=== PATIENT | female | born 1985 | race Caucasian/White ===

== ENCOUNTER 2020-10-14 02:01 | Emergency (ER) | payer OTHER ==
[~2020-10-14] VITALS: Ht 162.5 cm; Wt 70.3 kg
[2020-10-15] MEDS ORDERED: AUGMENTIN 875875 MG PO (01:04)
== END 2020-10-14 03:51 | disposition left against medical advice (07) ==
LOC: ED 02:01
DX: J06.9 Acute upper respiratory infection, unspecified (principal); H66.90 Otitis media, unspecified, unspecified ear; R05 Cough; F17.200 Nicotine dependence, unspecified, uncomplicated

== ENCOUNTER 2020-10-14 22:27 | Emergency (ER) | payer OTHER ==
[2020-10-15] MEDS ORDERED: AUGMENTIN 875875 MG PO (01:04)
== END 2020-10-15 01:44 | disposition home or self-care (01) ==
LOC: ED 22:27
DX: H66.90 Otitis media, unspecified, unspecified ear (principal)

== ENCOUNTER 2020-10-15 19:23 | Emergency (ER) | payer OTHER ==
[~2020-10-15 19:23] MED LIST: AUGMENTIN 875875 MG PO
== END 2020-10-15 20:00 | disposition left against medical advice (07) ==
LOC: ED 19:23
DX: F41.9 Anxiety disorder, unspecified (principal); Z53.21 Procedure and treatment not carried out due to patient leaving prior to being seen by health care provider

== ENCOUNTER 2020-10-15 20:52 | Emergency (ER) | payer OTHER | END 2020-10-15 22:22 | disposition left against medical advice (07) | LOC: ED 20:52 | DX: F41.9 Anxiety disorder, unspecified (principal); Z53.21 Procedure and treatment not carried out due to patient leaving prior to being seen by health care provider ==

== ENCOUNTER 2020-10-18 14:29 | Emergency (ER) | payer OTHER ==
[~2020-10-18] VITALS: Wt 72.6 kg
[2020-10-18] MEDS ORDERED: VISTARIL25 M2 PO (15:24)
== END 2020-10-18 15:43 | disposition home or self-care (01) ==
LOC: ED 14:29
DX: F41.9 Anxiety disorder, unspecified (principal); Z79.899 Other long term (current) drug therapy

== ENCOUNTER 2020-10-22 16:07 | Emergency (ER) | payer OTHER ==
[~2020-10-22] VITALS: Ht 157.4 cm; Wt 81.6 kg
[~2020-10-22 16:07] MED LIST changes: +VISTARIL25 M2 PO
[2020-10-22 17:24] LABS: BILIRUBIN Negative (Negative); BLOOD Negative (Negative); CLARITY Clear (Clear); COLOR Yellow (Yellow); GLUCOSE Negative (Negative); KETONE Trace (Negative); LEUKO ESTERASE Negative (Negative); NITRITE Negative (Negative); PH 5.5 (4.5-8.0); SPECIFIC GRAVITY >= 1.030 (1.001-1.030)
[2020-10-22 17:29] LABS: EPITHELIAL CELLS 31-40; RBC 0-2 rbc/hpf (0-2); WBC 0-2 wbc/hpf (0-5)
== END 2020-10-22 17:56 | disposition left against medical advice (07) ==
LOC: ED 16:07
PROVIDERS: Nurse Practitioner Family
DX: R10.32 Left lower quadrant pain (principal); Z79.899 Other long term (current) drug therapy; Z53.29 Procedure and treatment not carried out because of patient's decision for other reasons

== ENCOUNTER 2020-10-23 20:35 | Emergency (ER) | payer OTHER | END 2020-10-23 21:31 | disposition home or self-care (01) | LOC: ED 20:35 | DX: F19.10 Other psychoactive substance abuse, uncomplicated (principal); Z79.899 Other long term (current) drug therapy ==

== ENCOUNTER 2020-10-24 09:36 | Emergency (ER) | payer OTHER ==
[~2020-10-24] VITALS: Wt 77.1 kg
[2020-10-24 10:10] LABS: BILIRUBIN Negative (Negative); BLOOD 1+ (Negative); CLARITY Clear (Clear); COLOR Yellow (Yellow); GLUCOSE Negative (Negative); KETONE Negative (Negative); LEUKO ESTERASE Negative (Negative); NITRITE Negative (Negative); UROBILINOGEN 0.2 E.U./dl (0.0-1.0)
[2020-10-24 10:12] LABS: BASO % 0.4 % (0.0-1.0); EOS # 0.2 10*3/uL (0.0-0.4); EOS % 2.1 % (1.0-4.0); HEMATOCRIT 40.2 % (37.0-47.0); LYMPH # 3.1 10*3/uL (1.3-4.4); LYMPH % 29.8 % (27.0-41.0); MEAN CORPUSCULAR HGB 29.2 pg (27.0-31.0); MEAN CORPUSCULAR HGB CONC 32.1 g/dl (33.0-37.0); MEAN PLATELET VOLUME 9.4 fl (9.6-12.3); MONO # 1.1 10*3/uL (0.1-1.0); MONO % 10.5 % (3.0-9.0); NEUT # 5.9 10*3/uL (2.3-7.9); PLATELET COUNT AUTOMATED 363 10*3/uL (130-400); RED BLOOD COUNT 4.42 10*6/uL (4.10-5.10); RED CELL DISTRI WIDTH 14.6 % (0-14.5); WHITE BLOOD COUNT 10.4 10*3/uL (4.8-10.8)
[2020-10-24 10:21] LABS: URINE AMPHETAMINES > 1000 (1000ng/ml); URINE BARBITURATES < 200 (200ng/ml); URINE BENZODIAZEPINES < 200 (200ng/ml); URINE CANNABINOIDS (THC) < 50 (50ng/ml); URINE COCAINE < 300 (300ng/ml); URINE METHADONE < 300 (300ng/ml); URINE OPIATES < 300 (300ng/ml)
[2020-10-24 10:24] LABS: URINE PHENCYCLIDINE < 25 (25ng/ml)
[2020-10-24 10:27] LABS: ALBUMIN 3.3 gm/dl (3.1-4.5); ALKALINE PHOSPHATASE 68 U/L (45-117); BUN 13 mg/dl (7-24); CHLORIDE 107 mmol/L (98-107); CREATININE 0.69 mg/dL (0.55-1.02); POTASSIUM 3.7 mmol/L (3.5-5.1); SGOT/AST 14 IU/L (3-35); SGPT/ALT 32 U/L (12-78); SODIUM 136 mmol/L (136-145); TOTAL PROTEIN 7.1 gm/dL (6.4-8.2)
[2020-10-24 10:30] LABS: BACTERIA TRACE; WBC 0-2 wbc/hpf (0-5)
[2020-10-24 10:31] LABS: ETHYL ALCOHOL < 3.0 mg/dl (<3)
== END 2020-10-24 10:28 | disposition left against medical advice (07) ==
LOC: ED 09:36
PROVIDERS: Emergency Medicine
DX: R51.9 Headache, unspecified (principal); Z53.21 Procedure and treatment not carried out due to patient leaving prior to being seen by health care provider

== ENCOUNTER 2020-10-26 21:49 | Emergency (ER) | payer OTHER | END 2020-10-26 22:06 | disposition left against medical advice (07) | LOC: ED 21:49 | DX: F41.9 Anxiety disorder, unspecified (principal); Z53.21 Procedure and treatment not carried out due to patient leaving prior to being seen by health care provider ==